=== PATIENT | female | born 1940 | race Caucasian/White ===

== ENCOUNTER 2017-06-20 07:36 | Day surgery (SDC) | payer MEDICARE, BC ==
[~2017-06-20 07:36] MED LIST: Bupivacaine 0.25%/EPINEPHrine 1:200,000 10 ML SDV INJECT ONE; Bupivacaine 25%/EPINEPHrine/PF 30 ML ONE; Dexamethasone/Tobramycin 0.1-0.3% Ophth Oint 3.5 GM Tube ONE; Lidocaine 2% 5 ML SDV ONE; Octyl 2-Cyanoacrylate 1 Tube ONE; Propofol 200 MG/20 ML SDV ONE; fentaNYL 100 MCG/2 ML SDV ONE; traMADol 50 MG Tab PO PRN
[2017-06-20] MEDS ORDERED: ceFAZolin 2 GM in Premix Bag 1 BAG IV ONE (08:00)
[2017-06-20] MEDS ORDERED: Lactated Ringers 1,000 ML IV SCH (08:00)
[2017-06-20] MEDS ORDERED: diphenhydrAMINE 50 MG/ML SDV ONE (08:35)
--- NOTE | 2017-06-20 08:55 | PCM.PREANE ---
Preanesthetic Assessment - Anesthesia/Transfusion/Family Hx Anesthesia History: Prior Anesthesia Without Reaction Family History of Anesthesia Reaction: No Transfusion History: No Prior Transfusion(s) - Review of Systems General: No Symptoms Pulmonary: No Symptoms Cardiovascular: No Symptoms Gastrointestinal: No Symptoms Neurological: No Symptoms Other: Reports: None - Physical Assessment NPO Status Date: 06/19/17 NPO Status Time: 23:00 O2 Sat by Pulse Oximetry: 97 Respiratory Rate: 16 Vital Signs: Last Vital Signs Temp 36.7 C 06/20/17 08:07 Pulse 57 L 06/20/17 08:07 Resp 16 06/20/17 08:07 BP 138/74 06/20/17 08:07 Pulse Ox 97 06/20/17 08:07 Height: 1.57 m Weight: 55.338 kg ASA Class: 2 Mental Status: Alert & Oriented x3 Dentition: Reports: Bridge (central maxillary) Thyro-Mental Finger Breadths: 4 (receeding chin) ROM/Head Extension: Full Lungs: Clear to Auscultation, Normal Respiratory Effort Cardiovascular: Regular Rate, Regular Rhythm - Allergies Allergies/Adverse Reactions: Allergies Allergy/AdvReac Type Severity Reaction Status Date / Time celecoxib [From Celebrex] Allergy Rash Verified 06/15/17 12:32 doxycycline Allergy Muscle Verified 06/15/17 12:32 Aches Sulfa (Sulfonamide Allergy Rash Verified 06/15/17 12:32 Antibiotics) tape adhesives Allergy Redness/itc Uncoded 06/15/17 12:32 h - Acknowledgements Anesthesia Type Planned: MAC Pt an Appropriate Candidate for the Planned Anesthesia: Yes Alternatives and Risks of Anesthesia Discussed w Pt/Guardian: Yes Pt/Guardian Understands and Agrees with Anesthesia Plan: Yes Additional Comments: PMH: hx of SVT, HTN, PreAnesthesia Questionnaire HEENT History: Reports: Other (See Below) Other HEENT History: Poor hearing LEFT, hx: Dry eyes, wears glasses, has upper bridge Cardiovascular History: Reports: Arrhythmia, High Cholesterol, Hypertension Other Cardiovascular History: past hx: episode Supraventricular Tachycardia- rate now controlled with metoprolol, Mitral valve prolapse Gastrointestinal History: Reports: GERD Genitourinary History: Reports: Other (See Below) Other Genitourinary History: narrowing left kidney vessel 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 Musculoskeletal History: hx: dislocation and fracture Right shoulder, Neurological History: Reports: Migraines Endocrine/Metabolic History: Reports: None, Osteopenia Hematologic History: Reports: Blood Transfusion(s) Other Hematologic History: 2 units at time of Hysterectomy Other Dermatologic History: hx: Facial pre/early cancer excision, hx Ringworm - Past Surgical History Head Surgeries/Procedures: Reports: None HEENT Surgical History: Reports: Tonsillectomy Other HEENT Surgeries/Procedures: Recent NEW Solid bridge Upper front 6 teeth ' anchored only to 1 tooth each side' GI Surgical History: Reports: Appendectomy Female Surgical History: Reports: Breast Biopsy, Hysterectomy, Oophorectomy Other Female Surgeries/Procedures: Hyst with Rt Oophorectomy and Appy at that time, blood transfusion Other Musculoskeletal Surgeries/Procedures:: Right shoulder dislocation/fracture - SUBSTANCE USE Smoking Status *Q: Never Smoker Recreational Drug Use History: No - HOME MEDS Home Medications: Home Meds Aspirin [Halfprin] 1 tab PO DAILY 06/18/15 [History] Calcium Carbonate/Vitamin D3 [Calcium 600 + Vit D Tablet] 1 tab PO DAILY [History] Cholecalciferol (Vitamin D3) [Vitamin D3] 1,000 unit PO DAILY 06/18/15 [History] Metoprolol Tartrate 1 tab PO BID 06/18/15 [History] atorvaSTATin Calcium [Atorvastatin Calcium] 1 tab PO BEDTIME 06/18/15 [History] Biotin 1,000 mcg PO DAILY 06/14/17 [History] Propylene Glycol/PEG 400/Pf [Systane 0.3-0.4% Eye Drops] 1 drop EYEBOTH ASDIRECTED 06/14/17 [History] Lisinopril 20 mg PO BID 06/15/17 [History] - CURRENT (IN HOUSE) MEDS Current Meds: Current Medications Lactated Ringer's (Ringers, Lactated) 1,000 mls @ 125 mls/hr IV ASDIRECTED GUTIERREZ Last Admin: 06/20/17 08:09 Dose: 125 mls/hr Tramadol HCl (Ultram) 50 mg PO Q4H PRN PRN Reason: Pain Discontinued Medications Bupivacaine HCl/Epinephrine Bitart (Marcaine 0.25%/Epinephrine 1:200,000) 10 ml INJECT ONETIME ONE Stop: 06/20/17 06:01 Diphenhydramine HCl (Benadryl) Confirm Administered Dose 50 mg .ROUTE .STK-MED ONE Stop: 06/20/17 08:36 Fentanyl (Sublimaze) Confirm Administered Dose 100 mcg .ROUTE .STK-MED ONE Stop: 06/20/17 07:13 Cefazolin Sodium/Dextrose 2 gm (/ Premix) 50 mls @ 100 mls/hr IV ONETIME ONE Stop: 06/20/17 08:29 Bupivacaine HCl/Epinephrine Bitart (Sensorc Mpf 0.25%-Epi [id number]) Confirm Administered Dose 30 mls @ as directed .ROUTE .STK-MED ONE Stop: 06/20/17 07:21 Cefazolin Sodium/Dextrose (Ancef) Confirm Administered Dose 50 mls @ as directed .ROUTE .STK-MED ONE Stop: 06/20/17 07:34 Lidocaine (Xylocaine-Mpf 2%) Confirm Administered Dose 5 ml .ROUTE .STK-MED ONE Stop: 06/20/17 07:13 Octyl Cyanoacrylate (Dermabond Advance) Confirm Administered Dose 1 applic .ROUTE .STK-MED ONE Stop: 06/20/17 07:28 Propofol (Diprivan 20 Ml) Confirm Administered Dose 400 mg .ROUTE .STK-MED ONE Stop: 06/20/17 07:13 Tobramycin/Dexamethasone (Tobradex Ophth Oint) Confirm Administered Dose 3.5 gm .ROUTE .STK-MED ONE Stop: 06/20/17 07:28
[2017-06-20] MEDS ORDERED: Midazolam 1 MG/ML 2 ML SDV ONE (10:10)
[2017-06-20] MEDS ORDERED: fentaNYL 100 MCG/2 ML SDV ONE (10:11)
--- NOTE | 2017-06-20 11:36 | PCM.POSTAN ---
POST ANESTHESIA ASSESSMENT - MENTAL STATUS Mental Status: Alert, Oriented - RESPIRATORY Respiratory Status: Respiratory Rate WNL, Airway Patent, O2 Saturation Stable - CARDIOVASCULAR CV Status: Pulse Rate WNL, Blood Pressure Stable - GASTROINTESTINAL GI Status: No Symptoms - POST OP HYDRATION Hydration Status: Adequate & Stable
--- NOTE | 2017-06-20 11:36 | PCM48HPAN ---
Post Anesthesia Note - EVALUATION WITHIN 48HRS OF ANESTHETIC Vital Signs in Normal Range: Yes Patient Participated in Evaluation: Yes Respiratory Function Stable: Yes Airway Patent: Yes Cardiovascular Function Stable: Yes Hydration Status Stable: Yes Pain Control Satisfactory: Yes Nausea and Vomiting Control Satisfactory: Yes Mental Status Recovered: Yes
--- NOTE | 2017-06-20 13:36 | PCM.OPNOTE ---
- General Post-Op/Procedure Note Date of Surgery/Procedure: 06/20/17 Operative Procedure(s): bilateral upper lid blepharoplasty for excess skin Pre Op Diagnosis: dermatochalasis Post-Op Diagnosis: Same Anesthesia Technique: Local, MAC Primary Surgeon: Caridad Armstrong Fire Equipment Repairer Inspector: Bertha Beebe Complications: None Condition: Good
[2017-06-20 15:55] VITALS: BP 132/64
--- NOTE | 2017-06-25 11:16 | OR ---
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 PROCEDURE: Bilateral upper lid blepharoplasty for excess skin causing visual obstruction. ANESTHESIA: Local MAC. ORTHOTICS ASSISTANT: JENNY Fu INDICATIONS: Ms. Dong is a 77-year-old female seen today in evaluation for bilateral upper lid dermatochalasis. Risks and benefits of excess skin removal were discussed with her and she was in agreement to proceed. Risks were including, but not limited to, bleeding, infection, damage to underlying or overlying structures, possible need for future interventions, possible scarring. PROCEDURE IN DETAIL: After informed consent was obtained and placed on the chart, the patient was brought to the operating theater and laid in supine position. After adequate local MAC anesthetic was obtained, the area was prepped draped and a time-out was completed to confirm side and site. Once adequately prepped and draped, attention was then paid to marking of the excess upper eyelid skin and this was done using a caliper at 1.5 cm due to her significant excess skin. A 1 cm of upper lid was maintained over the tarsus and 1.5 cm of excess skin was removed. The skin was meticulously hemostased and the underlying muscle was cauterized for contraction. Once this was completed, the wound was closed with deep Monocryl stitch 4-0, a deep Monocryl stitch 5-0, and a running 6-0 Prolene for the skin. These were Steri-Stripped in place. The patient tolerated this well and the wound was dressed with TobraDex solution intraocularly and on the incision line as well. The patient tolerated this well. All counts and needles were correct at the end of the case. FOLLOWUP INSTRUCTIONS: The patient will see us in approximately 1 week for suture removal or sooner if any problems, questions, or concerns. JANNETTE / JAG /[id number]
== END 2017-06-20 12:00 | disposition home or self-care (01) ==
LOC: MW.SDS 07:36
PROVIDERS: ATTEND Plastic Surgery
DX: H02.831 Dermatochalasis of right upper eyelid (principal); H02.834 Dermatochalasis of left upper eyelid; I49.9 Cardiac arrhythmia, unspecified; E78.00 Pure hypercholesterolemia, unspecified; I10 Essential (primary) hypertension; I34.1 Nonrheumatic mitral (valve) prolapse; K21.9 Gastro-esophageal reflux disease without esophagitis; M85.80 Other specified disorders of bone density and structure, unspecified site; M81.0 Age-related osteoporosis without current pathological fracture; G43.909 Migraine, unspecified, not intractable, without status migrainosus; H91.92 Unspecified hearing loss, left ear; I47.1 Supraventricular tachycardia; Z88.6 Allergy status to analgesic agent; Z88.1 Allergy status to other antibiotic agents; Z88.2 Allergy status to sulfonamides; Z88.8 Allergy status to other drugs, medicaments and biological substances; Z79.82 Long term (current) use of aspirin; Z79.899 Other long term (current) drug therapy; Z90.721 Acquired absence of ovaries, unilateral; Z90.710 Acquired absence of both cervix and uterus; Z98.890 Other specified postprocedural states; Z83.3 Family history of diabetes mellitus
CPT/HCPCS: 15823; J0690; J1200; J2250; J3010; J7120; 00103; A9270-GY; J2704

== ENCOUNTER 2019-05-10 20:34 | Emergency (ER) | payer MEDICARE, BC ==
--- NOTE | 2019-05-10 20:59 | EDM.PDOC ---
ED HPI GENERAL MEDICAL PROBLEM - General Chief Complaint: ENT Problem Stated Complaint: SORE THROAT Time Seen by Provider: 05/10/19 20:59 Source of Information: Reports: Patient History Limitations: Reports: No Limitations - History of Present Illness INITIAL COMMENTS - FREE TEXT/NARRATIVE: HISTORY AND PHYSICAL: History of present illness: Patient is a 79-year-old female who presents to the emergency room today with complaints of throat pain and discomfort with swallowing. She states she has had these symptoms for the past 2 days. She states that the pain in her throat has increased in intensity today and she currently rates her pain at a 3 out of 10 and describes it as a "choking pain" that radiates to the back of her neck. She states it is "hard to swallow". She has tried ibuprofen which helps, however she is worried about having strep throat 2 to her comorbidities. Swallowing aggravates the pain. Patient denies any fever, chills, headache, change in vision, syncope or near syncope. Denies any chest pain, back pain, shortness of breath or cough. Denies any abdominal pain, nausea, vomiting, diarrhea, constipation or dysuria. Has not noted any blood in urine or stool. Patient has been eating and drinking appropriately. Review of systems: As per history of present illness and below otherwise all systems reviewed and negative. Past medical history: As per history of present illness and as reviewed below otherwise noncontributory. Surgical history: As per history of present illness and as reviewed below otherwise noncontributory. Social history: See social history for further information Family history: As per history of present illness and as reviewed below otherwise noncontributory. Physical exam: General: Patient is a well-nourished and well-developed 79-year-old female. Alert and oriented. Nontoxic in appearance and in no acute distress. Vital signs have been reviewed by me. HEENT: Atraumatic, normocephalic, pupils equal and reactive bilaterally, negative for conjunctival pallor or scleral icterus, mucous membranes moist, TMs normal bilaterally, posterior oropharynx slightly erythematous, neck supple , nontender, trachea midline. No drooling or trismus noted. No meningeal signs. No hot potato voice noted. Lungs: Clear to auscultation, breath sounds equal bilaterally, chest nontender. Heart: S1S2, regular rate and rhythm without overt murmur Abdomen: Soft, nondistended, nontender. Skin: Intact, warm, dry. No lesions or rashes noted. Extremities: Atraumatic, moves all extremities per self without difficulty or deficits, negative for cords or calf pain. Neurovascular unremarkable. Neuro: Awake, alert, oriented. Cranial nerves II through XII unremarkable. Cerebellum unremarkable. Motor and sensory unremarkable throughout. Exam nonfocal. Notes: Negative strep screening. Patient reports that she still feels very anxious of having the sensation of pain with her throat closing and is requesting imaging at this time. CT shows an asymmetrical lobulated soft tissue density in the region of the left lingual tonsil. Recommend further ENT evaluation to exclude neoplasm. No gross tonsillar or peritonsillar collection seen, given the limitations of a noncontrast examination. A right thyroid lobe lesion. Correlate with sonographic evaluation. These findings were shared with the patient and I did instruct her to follow-up with the ear nose and throat and Dr. haji. She states she has appointment on May 21, 2019. Supportive care measures were reviewed and discussed. Voices understanding and is agreeable to plan of care. Denies any further questions or concerns at this time. Diagnostics: Rapid strep, CT neck Therapeutics: None Prescription: None Impression: Pharyngitis Plan: 1. Strep Screening was negative. Your CT showed a small soft tissue growth on the left tonsil which should be further evaluated by ENT. Then there is a small lesion on the right thyriod, please have Dr Haji follow up with this result. 2. You may use Ibuprofen or Tylenol as needed for Pain. 3. You may do warm salt water gargles as needed. 4. Please return to the emergency room as needed and as discussed. Definitive disposition and diagnosis as appropriate pending reevaluation and review of above. throat Pain Score (Numeric/FACES): 4 - Related Data Allergies Allergy/AdvReac Type Severity Reaction Status Date / Time celecoxib [From Celebrex] Allergy Rash Verified 05/10/19 20:49 doxycycline Allergy Muscle Verified 05/10/19 20:49 Aches Sulfa (Sulfonamide Allergy Rash Verified 05/10/19 20:49 Antibiotics) tape adhesives Allergy Redness/itc Uncoded 05/10/19 20:49 h Home Meds: Home Meds Aspirin [Halfprin] 1 tab PO DAILY 06/18/15 [History] Calcium Carbonate/Vitamin D3 [Calcium 600 + Vit D Tablet] 1 tab PO DAILY [History] Cholecalciferol (Vitamin D3) [Vitamin D3] 1,000 unit PO DAILY 06/18/15 [History] Metoprolol Tartrate 1 tab PO BID 06/18/15 [History] atorvaSTATin Calcium [Atorvastatin Calcium] 1 tab PO BEDTIME 06/18/15 [History] Biotin 1,000 mcg PO DAILY 06/14/17 [History] Propylene Glycol/PEG 400/Pf [Systane 0.3-0.4% Eye Drop] 1 drop EYEBOTH ASDIRECTED 06/14/17 [History] Lisinopril 20 mg PO BID 06/15/17 [History] traMADol [Ultram] 50 mg PO Q4H PRN #30 tablet 06/20/17 [Rx] Past Medical History HEENT History: Reports: Other (See Below) Other HEENT History: Poor hearing LEFT, hx: Dry eyes OTC lubricant Cardiovascular History: Reports: Arrhythmia, High Cholesterol, Hypertension Other Cardiovascular History: past hx: episode Supraventricular Tachycardia- rate now controlled with metoprolol, Mitral valve prolapse Gastrointestinal History: Reports: GERD Genitourinary History: Reports: Other (See Below) Other Genitourinary History: narrowing left kidney vessel 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 Musculoskeletal History: hx: dislocation and fracture Right shoulder, Some low back 'aches" Neurological History: Reports: Migraines Other Neuro History: occasional headache not chronic Endocrine/Metabolic History: Reports: None, Osteopenia Hematologic History: Reports: Blood Transfusion(s) Other Hematologic History: 2 units at time of Hysterectomy Other Dermatologic History: hx: Facial pre/early cancer excision, recent Ringworm - Past Surgical History Head Surgeries/Procedures: Reports: None HEENT Surgical History: Reports: Tonsillectomy Other HEENT Surgeries/Procedures: Recent NEW Solid bridge Upper front 6 teeth ' anchored only to 1 tooth each side' GI Surgical History: Reports: Appendectomy Female Surgical History: Reports: Breast Biopsy, Hysterectomy, Oophorectomy Other Female Surgeries/Procedures: Hyst with Rt Oophorectomy and Appy at that time, blood transfusion Other Musculoskeletal Surgeries/Procedures:: Right shoulder dislocation/fracture ED ROS ENT - Review of Systems Review Of Systems: ROS reveals no pertinent complaints other than HPI. ED EXAM, ENT - Physical Exam Exam: See Below (See dictation) Course - Vital Signs Last Recorded V/S: Last Vital Signs Temp 97.8 F 05/10/19 23:18 Pulse 66 05/10/19 23:18 Resp 17 05/10/19 23:18 BP 169/69 H 05/10/19 23:18 Pulse Ox 97 05/10/19 23:18 - Orders/Labs/Meds Orders: Active Orders 24 hr Category Date Time Status CULTURE STREP A CONFIRMATION [] Stat Lab 05/10/19 21:00 Results STREP SCRN A RAPID W CULT CONF [RM] Stat Lab 05/10/19 21:00 Results Departure - Departure Time of Disposition: 23:46 Disposition: Home, Self-Care 01 Clinical Impression: Pharyngitis Qualifiers: Pharyngitis/tonsillitis etiology: unspecified etiology Qualified Code(s): J02.9 - Acute pharyngitis, unspecified - Discharge Information Instructions: Sore Throat, [id number] Referrals: Jorge Haji MD [Primary Care Provider] - Forms: ED Department Discharge Additional Instructions: The following information is given to patients seen in the emergency department who are being discharged to home. This information is to outline your options for follow-up care. We provide all patients seen in our emergency department with a follow-up referral. The need for follow-up, as well as the timing and circumstances, are variable depending upon the specifics of your emergency department visit. If you don't have a primary care physician on staff, we will provide you with a referral. We always advise you to contact your personal physician following an emergency department visit to inform them of the circumstance of the visit and for follow-up with them and/or the need for any referrals to a consulting specialist. The emergency department will also refer you to a specialist when appropriate. This referral assures that you have the opportunity for follow-up care with a specialist. All of these measure are taken in an effort to provide you with optimal care, which includes your follow-up. Under all circumstances we always encourage you to contact your private physician who remains a resource for coordinating your care. When calling for follow-up care, please make the office aware that this follow-up is from your recent emergency room visit. If for any reason you are refused follow-up, please contact the [facility] Emergency Department at and asked to speak to the emergency department charge nurse. [facility] [address] [place] [address] [facility] [address] [place] [address] 1. Strep Screening was negative. Your CT showed a small soft tissue growth on the left tonsil which should be further evaluated by ENT. Then there is a small lesion on the right thyroid, please have Dr Adithya follow up with this result. 2. You may use Ibuprofen or Tylenol as needed for Pain. 3. You may do warm salt water gargles as needed. 4. Please return to the emergency room as needed and as discussed. - My Orders Last 24 Hours: My Active Orders 05/10/19 21:00 CULTURE STREP A CONFIRMATION [RM] Stat STREP SCRN A RAPID W CULT CONF [RM] Stat - Assessment/Plan Last 24 Hours: My Active Orders 05/10/19 21:00 CULTURE STREP A CONFIRMATION [RM] Stat STREP SCRN A RAPID W CULT CONF [] Stat
[2019-05-10 23:19] VITALS: BP 169/69; PULSE 66
--- NOTE | 2019-05-10 23:33 | CT ---
INDICATION: Sore throat. Enlarged lymph nodes TECHNIQUE: CT soft tissue of the neck was acquired without IV contrast. COMPARISON: None available FINDINGS: The study is limited given the lack of intravenous contrast. There is lobulated asymmetrical soft tissue prominence along the left aspect of the anterior wall of the inferior oropharynx on images 30-33 of series 201, in the region of the left lingual tonsil, measuring up to 1.2 x 0.5 x 1.1 cm. The nasopharynx, oropharynx, hypopharynx and larynx are otherwise patent. No definite tonsillar or peritonsillar collection are seen, given the limitations of a noncontrast examination. The parotid, submandibular and sublingual glands are within normal limits. There is a 1.9 x 1.6 cm right thyroid lobe low-density lesion. No abnormally enlarged cervical lymph nodes are seen. There are degenerative changes in the cervical spine. IMPRESSION: Asymmetrical lobulated soft tissue density in the region of the left lingual tonsil. Recommend further ENT evaluation to exclude neoplasm. No gross tonsillar or peritonsillar collection seen, given the limitations of a noncontrast examination. A right thyroid lobe lesion. Correlate with sonographic evaluation. Dictated by Abimael Wallace MD @ 05/10/2019 11:29:13 PM Please note that all CT scans at this facility use dose modulation, iterative reconstruction, and/or weight-based dosing when appropriate to reduce radiation dose to as low as reasonably achievable. Dictated by: Abimael Wallace MD @ 05/10/2019 23:32:09 (Electronically Signed)
== END 2019-05-11 00:13 | disposition home or self-care (01) ==
LOC: MW.ED 20:34
DX: J02.9 Acute pharyngitis, unspecified (principal); E78.00 Pure hypercholesterolemia, unspecified; I10 Essential (primary) hypertension; Z79.899 Other long term (current) drug therapy; Z88.6 Allergy status to analgesic agent; Z88.2 Allergy status to sulfonamides; Z91.048 Other nonmedicinal substance allergy status
CPT/HCPCS: 70490; 70490-26; 87081; 87880-QW; 99283-25

== ENCOUNTER 2020-06-07 14:25 | Emergency (ER) | payer MEDICARE, BC ==
[2020-06-07] MEDS ORDERED: Sodium Chloride 0.9% 10 ML Syringe FLUSH PRN (14:37)
[2020-06-07] MEDS ORDERED: Sodium Chloride 0.9% 2.5 ML Syringe FLUSH PRN (14:37)
[2020-06-07] MEDS ORDERED: Sodium Chloride 0.9% 1,000 ML IV ONE (14:37)
[2020-06-07] MEDS ORDERED: Adenosine 6 MG/2 ML SDV IVPUSH ONE ×2 (14:38→14:48)
[2020-06-07] MEDS ORDERED: Adenosine 6 MG/2 ML SDV ONE (14:49)
[2020-06-07] MEDS ORDERED: Diltiazem 25 MG/5 ML SDV ONE ×3 (14:52→17:42)
[2020-06-07] MEDS ORDERED: Diltiazem 25 MG/5 ML SDV IVPUSH ONE ×2 (14:54→17:41)
[2020-06-07] MEDS ORDERED: Diltiazem 125 MG in Sodium Chloride 0.9% 100 ML IV SCH (15:00)
--- NOTE | 2020-06-07 15:07 | EDM.PDOC ---
ED HPI GENERAL MEDICAL PROBLEM - General Chief Complaint: Chest Pain Stated Complaint: CHEST PAIN Time Seen by Provider: 06/07/20 14:28 Source of Information: Reports: Patient History Limitations: Reports: No Limitations - History of Present Illness INITIAL COMMENTS - FREE TEXT/NARRATIVE: 80-year-old female past medical history hypertension, hyperlipidemia, supraventricular tachycardia presents for rapid heart rate. Patient states that she leaned over and upon standing felt her heart racing. Mild associated shortness of breath, no chest pain. She tried coughing which normally helps with her tachycardia, but it did not break. No cough, fevers, recent illness - Related Data Allergies Allergy/AdvReac Type Severity Reaction Status Date / Time celecoxib [From Celebrex] Allergy Rash Verified 06/07/20 14:33 doxycycline Allergy Muscle Verified 06/07/20 14:33 Aches Sulfa (Sulfonamide Allergy Rash Verified 06/07/20 14:33 Antibiotics) tape adhesives Allergy Redness/itc Uncoded 06/07/20 14:33 h Home Meds: Home Meds Aspirin [Halfprin] 1 tab PO DAILY 06/18/15 [History] Calcium Carbonate/Vitamin D3 [Calcium 600 + Vit D Tablet] 1 tab PO DAILY 06/18/15 [History] Cholecalciferol (Vitamin D3) [Vitamin D3] 1,000 unit PO DAILY 06/18/15 [History] Metoprolol Tartrate 25 mg PO BID 06/18/15 [History] atorvaSTATin Calcium [Atorvastatin Calcium] 20 mg PO DAILY 06/18/15 [History] Biotin 1,000 mcg PO DAILY 06/14/17 [History] Propylene Glycol/PEG 400/Pf [Systane 0.3-0.4% Eye Drop] 1 drop EYEBOTH ASDIRECTED 06/14/17 [History] Lisinopril 20 mg PO BID 06/15/17 [History] Calcitonin,Hamilton,Synthetic [Calcitonin-Hamilton] 1 spray NASLF Q2D 06/07/20 [History] Calcitonin,Hamilton,Synthetic [Calcitonin-Hamilton] 1 spray NASRT Q2D 06/07/20 [History] amLODIPine [Norvasc] 2.5 mg PO DAILY 06/07/20 [History] Past Medical History HEENT History: Reports: Other (See Below) Other HEENT History: Poor hearing LEFT, hx: Dry eyes OTC lubricant Cardiovascular History: Reports: Arrhythmia, High Cholesterol, Hypertension Other Cardiovascular History: past hx: episode Supraventricular Tachycardia-rate now controlled with metoprolol, Mitral valve prolapse Gastrointestinal History: Reports: GERD Genitourinary History: Reports: Other (See Below) Other Genitourinary History: narrowing left kidney vessel HIRED HAND History: Reports: Other Musculoskeletal History: hx: dislocation and fracture Right shoulder, Some low back 'aches" Neurological History: Reports: Migraines Other Neuro History: occasional headache not chronic Endocrine/Metabolic History: Reports: None, Osteopenia Other Endocrine/Metabolic History: Cysts on Thryroid Hematologic History: Reports: Blood Transfusion(s) Other Hematologic History: 2 units at time of Hysterectomy Other Dermatologic History: hx: Facial pre/early cancer excision, recent Ringworm - Infectious Disease History Infectious Disease History: Reports: Chicken Pox, Measles, Mumps - Past Surgical History Head Surgeries/Procedures: Reports: None HEENT Surgical History: Reports: Tonsillectomy Other HEENT Surgeries/Procedures: Recent NEW Solid bridge Upper front 6 teeth 'anchored only to 1 tooth each side' GI Surgical History: Reports: Appendectomy Female Surgical History: Reports: Breast Biopsy, Hysterectomy, Oophorectomy Other Female Surgeries/Procedures: Hyst with Rt Oophorectomy and Appy at that time, blood transfusion Other Musculoskeletal Surgeries/Procedures:: Right shoulder dislocation/fracture Social & Family History - Family History Family Medical History: Noncontributory - Tobacco Use Tobacco Use Status *Q: Never Tobacco User - Caffeine Use Caffeine Use: Reports: Coffee - Recreational Drug Use Recreational Drug Use: No ED ROS GENERAL - Review of Systems Review Of Systems: Comprehensive ROS is negative, except as noted in HPI. ED EXAM, GENERAL - Physical Exam Exam: See Below Exam Limited By: No Limitations General Appearance: Alert, WD/WN, No Apparent Distress Throat/Mouth: Normal Voice, No Airway Compromise Head: Atraumatic, Normocephalic Neck: Normal Inspection Respiratory/Chest: No Respiratory Distress, Lungs Clear, Normal Breath Sounds, No Accessory Muscle Use Cardiovascular: Tachycardia GI/Abdominal: Soft, Non-Tender Extremities: Normal Inspection Neurological: Alert Psychiatric: Normal Affect, Normal Mood Skin Exam: Warm, Dry, Intact, Normal Color #1 Interpretation EKG Date: 06/07/20 Time: 14:40 Rhythm: Other (tachycardia, irregular) Rate (Beats/Min): 160 Wesley: Normal P-Wave: Present QRS: Normal ST-T: Depressed QT: Normal EKG Interpretation Comments: tachycardia, irregular #2 Interpretation EKG Date: 06/07/20 Time: 15:17 Rhythm: A-Fib Rate (Beats/Min): 117 Wesley: Normal QRS: Normal ST-T: Normal QT: Normal Course - Vital Signs Last Recorded V/S: Last Vital Signs Temp 98.6 F 06/07/20 14:30 Pulse 133 H 06/07/20 17:15 Resp 18 06/07/20 16:39 BP 124/86 06/07/20 16:39 Pulse Ox 95 06/07/20 16:39 - Orders/Labs/Meds Orders: Active Orders 24 hr Category Date Time Status Cardiac Monitoring [RC] . DIRECTED Care 06/07/20 14:37 Active EKG Documentation Completion [RC] STAT Care 06/07/20 14:39 Active EKG Documentation Completion [RC] STAT Care 06/07/20 15:16 Active Pulse Oximetry [RC] ASDIRECTED Care 06/07/20 14:37 Active B-TYPE NATRIURETIC PEPTIDE,BNP [CHEM] Stat Lab 06/07/20 14:32 Received CORONAVIRUS COVID-19 PCR PHL Stat Lab 06/07/20 16:41 Received Diltiazem [Cardizem] 100 mg Med 06/07/20 15:09 Active Sodium Chloride 0.9% [Normal Saline] 100 ml IV NOW Sodium Chloride 0.9% [Saline Flush] Med 06/07/20 14:37 Active 10 ml FLUSH ASDIRECTED PRN Sodium Chloride 0.9% [Saline Flush] Med 06/07/20 14:37 Active 2.5 ml FLUSH ASDIRECTED PRN Saline Lock Insert [OM.PC] Stat Oth 06/07/20 14:37 Ordered Medication Orders Diltiazem HCl 100 mg/ Sodium (Chloride) 100 mls @ 5 mls/hr IV NOW [facility]; Protocol Last Titration: 06/07/20 16:37 Dose: 15 mg/hr, 15 mls/hr Documented by: Titration: 06/07/20 15:55 Dose: 10 mg/hr, 10 mls/hr Documented by: [id number] Admin: 06/07/20 15:17 Dose: 5 mg/hr, 5 mls/hr Documented by: [email or web address] Sodium Chloride (Saline Flush) 10 ml FLUSH ASDIRECTED PRN PRN Reason: Keep Vein Open Last Admin: 06/07/20 14:59 Dose: 10 ml Documented by: ERMA Sodium Chloride (Saline Flush) 2.5 ml FLUSH ASDIRECTED PRN PRN Reason: Keep Vein Open Last Admin: 06/07/20 15:00 Dose: 2.5 ml Documented by: ERMA Labs: Laboratory Tests 06/07/20 06/07/20 06/07/20 Range/Units 14:32 14:32 14:32 WBC 6.84 (4.0-11.0) K/uL RBC 4.29 L (4.30-5.90) M/uL Hgb 13.0 (12.0-16.0) g/dL Hct 40.5 (36.0-46.0) % MCV 94.4 (80.0-98.0) fL MCH 30.3 (27.0-32.0) pg MCHC 32.1 (31.0-37.0) g/dL RDW Std Deviation 44.5 (28.0-62.0) fl RDW Coeff of Radha 13 (11.0-15.0) % Plt Count 352 (150-400) K/uL MPV 10.60 (7.40-12.00) fL Neut % (Auto) 61.7 (48.0-80.0) % Lymph % (Auto) 24.7 (16.0-40.0) % [place] % (Auto) 8.2 (0.0-15.0) % Eos % (Auto) 5.0 (0.0-7.0) % Baso % (Auto) 0.4 (0.0-1.5) % Neut # (Auto) 4.2 (1.4-5.7) K/uL Lymph # (Auto) 1.7 (0.6-2.4) K/uL [place] # (Auto) 0.6 (0.0-0.8) K/uL Eos # (Auto) 0.3 (0.0-0.7) K/uL Baso # (Auto) 0.0 (0.0-0.1) K/uL Nucleated RBC % 0.0 /100WBC Nucleated RBCs # 0 K/uL INR APTT (18.6-31.3) SEC Lactate 1.6 (0.20-2.00) mmol/L Sodium 140 (136-145) mmol/L Potassium 3.8 (3.5-5.1) mmol/L Chloride 103 (98-107) mmol/L Carbon Dioxide 25.6 (21.0-32.0) mmol/L BUN 19 H (7.0-18.0) mg/dL Creatinine 1.1 H (0.6-1.0) mg/dL Est Cr Clr Drug Dosing 32.80 mL/min Estimated GFR (MDRD) 47.9 ml/min Glucose 138 H (74-106) mg/dL Calcium 8.8 (8.5-10.1) mg/dL Magnesium 2.0 (1.8-2.4) mg/dL Total Bilirubin 0.3 (0.2-1.0) mg/dL AST 19 (15-37) IU/L ALT 26 (14-63) IU/L Alkaline Phosphatase 100 (46-116) U/L Troponin I < 0.050 (0.000-0.056) ng/mL Total Protein 7.1 (6.4-8.2) g/dL Albumin 3.7 (3.4-5.0) g/dL Globulin 3.4 (2.6-4.0) g/dL Albumin/Globulin Ratio 1.1 (0.9-1.6) TSH 3rd Generation 1.93 (0.36-3.74) uIU/mL SARS CoV-2 RNA Rapid ROMULO (NEGATIVE) 06/07/20 06/07/20 Range/Units 15:50 16:41 WBC (4.0-11.0) K/uL RBC (4.30-5.90) M/uL Hgb (12.0-16.0) g/dL Hct (36.0-46.0) % MCV (80.0-98.0) fL MCH (27.0-32.0) pg MCHC (31.0-37.0) g/dL RDW Std Deviation (28.0-62.0) fl RDW Coeff of Radha (11.0-15.0) % Plt Count (150-400) K/uL MPV (7.40-12.00) fL Neut % (Auto) (48.0-80.0) % Lymph % (Auto) (16.0-40.0) % [place] % (Auto) (0.0-15.0) % Eos % (Auto) (0.0-7.0) % Baso % (Auto) (0.0-1.5) % Neut # (Auto) (1.4-5.7) K/uL Lymph # (Auto) (0.6-2.4) K/uL [place] # (Auto) (0.0-0.8) K/uL Eos # (Auto) (0.0-0.7) K/uL Baso # (Auto) (0.0-0.1) K/uL Nucleated RBC % /100WBC Nucleated RBCs # K/uL INR 0.99 APTT 21.5 (18.6-31.3) SEC Lactate (0.20-2.00) mmol/L Sodium (136-145) mmol/L Potassium (3.5-5.1) mmol/L Chloride (98-107) mmol/L Carbon Dioxide (21.0-32.0) mmol/L BUN (7.0-18.0) mg/dL Creatinine (0.6-1.0) mg/dL Est Cr Clr Drug Dosing mL/min Estimated GFR (MDRD) ml/min Glucose (74-106) mg/dL Calcium (8.5-10.1) mg/dL Magnesium (1.8-2.4) mg/dL Total Bilirubin (0.2-1.0) mg/dL AST (15-37) IU/L ALT (14-63) IU/L Alkaline Phosphatase (46-116) U/L Troponin I (0.000-0.056) ng/mL Total Protein (6.4-8.2) g/dL Albumin (3.4-5.0) g/dL Globulin (2.6-4.0) g/dL Albumin/Globulin Ratio (0.9-1.6) TSH 3rd Generation (0.36-3.74) uIU/mL SARS CoV-2 RNA Rapid ROMULO NEGATIVE (NEGATIVE) Meds: Medications Generic Name Dose Route Start Last Admin Trade Name Freq PRN Reason Stop Dose Admin Diltiazem HCl 100 mg/ Sodium 100 mls @ 5 mls/hr 06/07/20 15:09 06/07/20 16:37 Chloride IV 15 mg/hr NOW GUTIERREZ 15 mls/hr Titration Protocol 5 MG/HR Sodium Chloride 10 ml 06/07/20 14:37 06/07/20 14:59 Saline Flush FLUSH 10 ml ASDIRECTED PRN Administration Keep Vein Open Sodium Chloride 2.5 ml 06/07/20 14:37 06/07/20 15:00 Saline Flush FLUSH 2.5 ml ASDIRECTED PRN Administration Keep Vein Open Discontinued Medications Generic Name Dose Route Start Last Admin Trade Name Freq PRN Reason Stop Dose Admin Adenosine 6 mg 06/07/20 14:38 06/07/20 15:01 Adenocard IVPUSH 06/07/20 14:39 6 mg NOW ONE Administration Adenosine Confirm 06/07/20 14:49 06/07/20 14:56 Adenocard Administered 06/07/20 14:50 Not Given Dose 12 mg .ROUTE .STK-MED ONE Adenosine 12 mg 06/07/20 14:48 06/07/20 15:01 Adenocard IVPUSH 06/07/20 14:49 12 mg NOW ONE Administration Digoxin 250 mcg 06/07/20 16:41 06/07/20 17:15 Lanoxin IVPUSH 06/07/20 16:42 250 mcg ONETIME ONE Administration Diltiazem HCl Confirm 06/07/20 14:52 06/07/20 15:00 Diltiazem Administered 06/07/20 14:53 Not Given Dose 25 mg .ROUTE .STK-MED ONE Diltiazem HCl Confirm 06/07/20 14:53 06/07/20 15:00 Diltiazem Administered 06/07/20 14:54 Not Given Dose 50 mg .ROUTE .STK-MED ONE Diltiazem HCl 20 mg 06/07/20 14:54 06/07/20 15:00 Diltiazem IVPUSH 06/07/20 14:55 20 mg ONETIME ONE Administration Heparin Sodium (Porcine) 5,000 units 06/07/20 17:03 06/07/20 17:07 Heparin Sodium IVPUSH 06/07/20 17:04 Not Given ONETIME ONE Heparin Sodium (Porcine) 4,500 units 06/07/20 17:05 06/07/20 17:14 Heparin Sodium IVPUSH 06/07/20 17:06 4,500 units .BOLUS ONE Administration Sodium Chloride 1,000 mls @ 999 mls/hr 06/07/20 14:37 06/07/20 14:59 Normal Saline IV 06/07/20 15:37 999 mls/hr .Bolus ONE Administration Diltiazem HCl 125 mg/ Sodium 125 mls @ 5 mls/hr 06/07/20 15:00 Chloride IV NOW GUTIERREZ Protocol 5 MG/HR Sodium Chloride Confirm 06/07/20 15:13 06/07/20 15:22 Normal Saline Administered 06/07/20 15:14 Not Given Dose 100 mls @ as directed .ROUTE .STK-MED ONE Magnesium Sulfate 2 gm/ Premix 50 mls @ 50 mls/hr 06/07/20 16:15 06/07/20 16:32 IV 06/07/20 17:14 50 mls/hr ONETIME ONE Administration - Re-Assessments/Exams Free Text/Narrative Re-Assessment/Exam: 06/07/20 15:06 Patient with history of SVT, HR is ranging 160-200s. Adenosine 6mg and 12mg trialed which briefly slow heart but rate increases. Difficult to tell underlying rhythm. Cardizem 20mg given w/ slowing of HR to 90-120s. Repeat EKG does reveal Afib. Will get cardizem drip and admit for new onset Afib. 06/07/20 15:12 CBC is normal 06/07/20 16:42 Cardizem was initially working well for a couple of minutes, but heart rate has jumped back up to 140s to 160s. Magnesium was hung. Digoxin 0.25 mg ordered. We will follow up labs and will transfer patient. Patient prefers [facility] if available. 06/07/20 17:18 Spoke with multiple hospitals, there are not many beds available in local hospitals. Spoke with [facility] who has bed availability and will be happy to accept the patient. Spoke with director audience marketing Dr. Huff who agrees with plan for adding digoxin. Recommends bolus of heparin, not starting drip until she gets to [place]. Also spoke with hospitalist who agrees to accept the patient. Departure - Departure Time of Disposition: 17:19 Disposition: DC/Tfer to Acute Hospital 02 Condition: Fair Clinical Impression: Atrial fibrillation with RVR - Discharge Information Referrals: PCP,None [Primary Care Provider] - Forms: ED Department Discharge Critical Care Note - Critical Care Note Total Time (mins): 35 Sepsis Event Note (ED) - Evaluation Sepsis Screening Result: No Definite Risk - Focused Exam Vital Signs: Vital Signs Temp Pulse Pulse Resp BP Pulse Ox 06/07/20 17:15 133 H 06/07/20 16:39 150 H 18 124/86 95 06/07/20 15:38 124 H 18 116/81 94 L 06/07/20 15:23 127 H 14 133/74 96 06/07/20 14:53 151 H 127/87 97 06/07/20 14:44 147 H 141/82 H 96 06/07/20 14:30 98.6 F 140 H 20 109/76 95 - My Orders Last 24 Hours: My Active Orders 06/07/20 14:32 B-TYPE NATRIURETIC PEPTIDE,BNP [CHEM] Stat 06/07/20 14:37 Cardiac Monitoring [RC] . DIRECTED Pulse Oximetry [RC] ASDIRECTED Sodium Chloride 0.9% [Saline Flush] 10 ml FLUSH ASDIRECTED PRN Sodium Chloride 0.9% [Saline Flush] 2.5 ml FLUSH ASDIRECTED PRN Saline Lock Insert [OM.PC] Stat 06/07/20 14:39 EKG Documentation Completion [RC] STAT 06/07/20 15:09 Diltiazem [Cardizem] 100 mg Sodium Chloride 0.9% [Normal Saline] 100 ml IV NOW 06/07/20 15:16 EKG Documentation Completion [RC] STAT 06/07/20 16:41 CORONAVIRUS COVID-19 PCR PHL Stat - Assessment/Plan Last 24 Hours: My Active Orders 06/07/20 14:32 B-TYPE NATRIURETIC PEPTIDE,BNP [CHEM] Stat 06/07/20 14:37 Cardiac Monitoring [RC] . DIRECTED Pulse Oximetry [RC] ASDIRECTED Sodium Chloride 0.9% [Saline Flush] 10 ml FLUSH ASDIRECTED PRN Sodium Chloride 0.9% [Saline Flush] 2.5 ml FLUSH ASDIRECTED PRN Saline Lock Insert [OM.PC] Stat 06/07/20 14:39 EKG Documentation Completion [RC] STAT 06/07/20 15:09 Diltiazem [Cardizem] 100 mg Sodium Chloride 0.9% [Normal Saline] 100 ml IV NOW 06/07/20 15:16 EKG Documentation Completion [RC] STAT 06/07/20 16:41 CORONAVIRUS COVID-19 PCR PHL Stat
--- NOTE | 2020-06-07 15:08 | CR ---
INDICATION: Chest pain and shortness of breath TECHNIQUE: Chest 1 view COMPARISON: Two view chest March 12, 2013 FINDINGS: There is chronic interstitial change without dense consolidation, effusion, or pneumothorax. The cardiac silhouette is stable. The bony thorax is grossly intact. There is no pneumothorax. IMPRESSION: Mild chronic interstitial change without evidence of definite acute cardiopulmonary abnormality. Dictated by Nishant Caruso MD @ Jun 07 2020 3:05PM Signed by Dr. Nishant Caruso @ Jun 07 2020 3:06PM
[2020-06-07] MEDS ORDERED: Sodium Chloride 0.9% 100 ML ONE ×2 (15:13→17:38)
[2020-06-07 15:17] LABS: BLOOD UREA NITROGEN,BUN 19 mg/dL (7.0-18.0); CARBON DIOXIDE,CO2 25.6 mmol/L (21.0-32.0); CHLORIDE,CL 103 mmol/L (98-107); GLUCOSE RANDOM 138 mg/dL (74-106); POTASSIUM,K 3.8 mmol/L (3.5-5.1); SODIUM,NA 140 mmol/L (136-145)
[2020-06-07] MEDS: Diltiazem 100 MG in Sodium Chloride 0.9% 100 ML IV SCH ×2 (15:17→17:39)
[2020-06-07] MEDS ORDERED: Magnesium Sulfate/Water 2 GM in Premix Bag 1 BAG IV ONE (16:15)
[2020-06-07] MEDS ORDERED: Digoxin 500 MCG/2 ML Amp IVPUSH ONE (16:41)
[2020-06-07] MEDS ORDERED: Heparin Sodium 5,000 Units/ML Vial IVPUSH ONE ×2 (17:03→17:05)
[2020-06-07] MEDS ORDERED: Diltiazem 100 MG in Sodium Chloride 0.9% 100 ML IV SCH (17:45)
[2020-06-07 20:41] VITALS: BP 114/76; PULSE 147
== END 2020-06-07 17:45 ==
LOC: MW.ED 14:25
DX: I48.91 Unspecified atrial fibrillation (principal); E78.5 Hyperlipidemia, unspecified; I10 Essential (primary) hypertension; Z88.2 Allergy status to sulfonamides; Z91.048 Other nonmedicinal substance allergy status; Z88.8 Allergy status to other drugs, medicaments and biological substances; Z88.1 Allergy status to other antibiotic agents; Z79.82 Long term (current) use of aspirin; Z79.899 Other long term (current) drug therapy; Z20.828 Contact with and (suspected) exposure to other viral communicable diseases
CPT/HCPCS: 36415; 71045; 80053; 83605; 83735; 83880; 84443; 84484; 85025; 85610; 85730; 93005; 96365; 96366; 96368; 96375; 99285; J0153; J1160; J1644; J3475; J3490; J7030; J7050; U0002; 93010